=== PATIENT | female | born 1995 | race Caucasian/White ===

== ENCOUNTER → 2021-12-14 11:47 | Outpatient (CLI) | payer OTHER, SELFPAY ==
[2021-12-15 13:12] LABS: Strep Grp B PCR NEG for Grp B Strep
[2022-01-07 14:00] VITALS: PULSE 126; RESP 48; TEMP 36.8
--- NOTE | 2022-01-07 15:53 | PC.NURSE ---
1400 patient admitted to Center,alert, mom gave 10cc of formula then babe placed under double backing. VSS
--- NOTE | 2022-01-07 15:58 | PC.NURSE ---
5170 explained to mother plan of care,feeding and supplementation,set up electric pump
== END ==
PROVIDERS: Visit Provider Obstetrics & Gynecology
DX: Z34.03 Encounter for supervision of normal first pregnancy, third trimester (principal); Z3A.36 36 weeks gestation of pregnancy
CPT/HCPCS: 87653

== ENCOUNTER 2022-01-07 16:09 | Observation (INO) | payer OTHER, SELFPAY ==
--- NOTE | 2022-01-07 19:21 | P.TNLD_ITS ---
Visit Information Visit Information Date of evaluation: 01/07/22 Primary OB Provider: Manuelito Rajan On-call OB Provider: Manuelito Rajan Reason for Evaluation: Yes rule out labor Comments/Additional reasons for admission: Contractions all day log, slowly intensifying FOR[facility]LY [facility], [facility] Medical History Asperger syndrome Vasovagal episode Surgical History No history of previous surgery Family History Father Hypertension Diabetes mellitus Asthma Brother Asthma Club foot Grandmother Uterine cancer Mother Depression Bipolar 1 disorder Grandfather Prostate cancer Family/Other Spinal cord cancer Social History marital status: household members: spouse lives independently: Yes housing: house ([employer] until base housing becomes available) pets and animals: Yes (Parakeet and dog) education level: college (Associate's degree) occupational status: previously employed current occupational exposures/hazards: No special [place] needs: No seatbelt use: always water heater temp set < 120 deg: No (Not able to change in hotel, but will check once in housing.) working smoke detector in home: Yes fire extinguisher in home: Yes carbon monox detector in home: Yes firearms in home: Yes firearms unloaded and locked: Yes do you feel safe at home: Yes Smoking Status: Never smoker second hand exposure: No alcohol intake: former substance use type: does not use during the past year weight has: remained stable well-balanced diet: daily or most days daily servings fruits/ve-4 caffeine: Yes Type(s) of exercise: regular exercise Review of Systems Review of Systems Narrative: Problem-specific ROS positives included in HPI Exam Const General: cooperative HENMT Head: normal to inspection, normocephalic and atraumatic Eyes General: appearance normal, both eyes and all related structures Resp Effort & Inspection: normal respiratory effort and able to speak in complete sentences GI Inspection: normal to inspection Palpation: soft and no hepatosplenomegaly Extrem Right lower extremity: normal to inspection Evaluation Evaluation Baseline heart rate: 140 Variability: Average (6-10) monitor accelerations: Present Monitor Decelerations: Absent Contraction Frequency (minutes): 3 Uterine Contraction Intensity: Mild Category of Tracing: Reactive Status: Category l Cervical dilation (cm): 2 Cervical effacement (%): 90 station: 0 Diagnosis, Plan/Disposition Final Diagnosis (1) : Status: Acute (2) Uterine contractions during : Status: Acute Plan/Disposition Plan: Extended observation; ambulate and recheck cervix for progress. Consider induction of spontaneous labor doesn't begin. OB Disposition: other (Observation)
== END 2022-01-07 22:23 | disposition home or self-care (01) ==
LOC: LABOR 16:11
PROVIDERS: Admitting Provider Obstetrics & Gynecology; Referring Provider Obstetrics & Gynecology; Visit Provider Obstetrics & Gynecology
DX: O47.1 False labor at or after 37 completed weeks of gestation (principal); O09.513 Supervision of elderly primigravida, third trimester; Z3A.40 40 weeks gestation of pregnancy
CPT/HCPCS: 59025; 59050; G0378; G0379

== ENCOUNTER 2022-01-08 16:16 | Inpatient (IN) | payer OTHER, SELFPAY ==
[2022-01-08 17:30] VITALS: BP 111/74
--- NOTE | 2022-01-08 18:04 | PM.OBHP.1 ---
OB HPI Date/Time Date of admission: 01/08/22 Date Patient Seen: 01/08/22 Time Patient Seen: 18:04 History of Present Condition Chief complaint: : 1 Para: 0 Estimated Date of Delivery: 01/05/22 Estimated Gestational Age (weeks): 40+3 w Narrative: Brittney Martinez is a 26 year old at 40+3 weeks EGA admitted with SROM occuring at 1550 this afternoon and contractions which have been steadily intensifying over the last 24-36 hours. Fluid is noted to be meconium stained. Her course has largely been uneventful w/ good dates, negative CfDMA (female), and negative second trimester AFP testing. Her anterior placenta has an accessory lobe in the fundal portion of the placenta. GBS is negative. History of Present care: good care Dating criteria: LMP confirmed by 1st trimester US Ultrasounds: normal 1st trimester US, normal mid trimester US and abnormal US findings (Accessory lobe of anterior placenta) Obstetrical complications: none Medical complications: none Preadmission Labs Blood type: A (+) positive -: Antibody screen: negative, GBS status: negative, HBsAG: negative, HIV: negative and RPR/VDLR: negative -: Chlamydia screen: not detected and Gonorrhea screen: not detected -: Rubella: immune and Varicella: immune HCT: 36.2 HCAB: negative PAP: Normal Cell-free DNA: Negative for trisomy; female 1 hr GTT: 135 Prior (ies) History: N/A Evaluation Evaluation Baseline heart rate: 145 Variability: Moderate (11-25) monitor accelerations: Present Monitor Decelerations: Absent Contraction Frequency (minutes): 4 Uterine Contraction Intensity: Moderate Category of Tracing: Reactive Status: Category l Dilation (cm): 3 Effacement (%): 90 Dilation: 3-4 cm Effacement: >/=80% station: -1 Position of cervix: anterior Consistency: soft John score: 11 Non-invasive Membranes Rupture Test: positive [facility] Medical History Asperger syndrome Vasovagal episode Surgical History No history of previous surgery Family History Father Hypertension Diabetes mellitus Asthma Brother Asthma Club foot Grandmother Uterine cancer Mother Depression Bipolar 1 disorder Grandfather Prostate cancer Family/Other Spinal cord cancer Social History marital status: household members: spouse lives independently: Yes housing: house ([place] until base housing becomes available) pets and animals: Yes (Parakeet and dog) education level: college (Associate's degree) occupational status: previously employed current occupational exposures/hazards: No special [place] needs: No seatbelt use: always water heater temp set < 120 deg: No (Not able to change in hotel, but will check once in housing.) working smoke detector in home: Yes fire extinguisher in home: Yes carbon monox detector in home: Yes firearms in home: Yes firearms unloaded and locked: Yes do you feel safe at home: Yes Smoking Status: Never smoker second hand exposure: No alcohol intake: former substance use type: does not use during the past year weight has: remained stable well-balanced diet: daily or most days daily servings fruits/ve-4 caffeine: Yes Type(s) of exercise: regular exercise Meds Home Medications and Allergies Home Medications Medication Instructions Recorded Confirmed Type prenat.vits,josh,oow-teib-tlyli 1 tab PO DAILY 10/20/21 01/08/22 History Allergies Allergy/AdvReac Type Severity Reaction Status Date / Time thymerisol AdvReac Severe Unconscious Uncoded 01/04/22 10:30 Review of Systems Review of Systems Narrative: Problem-specific ROS positives included in HPI OB Exam HENMT Head: normal to inspection, normocephalic and atraumatic Eyes General: appearance normal, both eyes and all related structures Resp Effort & Inspection: normal respiratory effort and able to speak in complete sentences Auscultation: clear to auscultation bilaterally Cardio Rate: regular rate Rhythm: regular rhythm Heart Sounds: S1 normal, S2 normal and no murmurs Extremities Lower extremity: Yes normal to inspection GI Inspection: normal to inspection Palpation: Yes soft and Yes no hepatosplenomegaly Uterus Location (Fundal Height): 36 Estimated Weight (lbs): 8 Amniotic Fluid: meconium (Moderate, non-particulate) Objective Labs Result Diagrams: 01/08/22 17:00 Assessment and Plan Assessment and Plan Assessment and Plan narrative: ASSESSMENT 1. IUP, 40+3 weeks EGA 2. SROM, meconium staining 3. Accessory lobe of placenta, anterior/fundal 4. GBS negative status PLAN 1. Admit for delivery 2. See orders
[2022-01-08 18:15] LABS: Add Manual Diff / Slide Review NO; Basophils Absolute Auto 0 /uL (0-100); Basophils Percent Auto 0.2 % (0-2); Eosinophils Absolute Auto 100 /uL (0-450); Eosinophils Percent Auto 0.5 % (2-4); Hematocrit 34.9 % (36-46); Hemoglobin 12.3 g/dL (12.0-16.0); Lymphocytes Absolute Auto 1600 /uL (1100-4500); Lymphocytes Percent Auto 13.7 % (25-40); Mean Corpuscular HGB Conc 35.1 % (30-36); Mean Corpuscular Hemoglobin 31.2 PG (26-34); Mean Corpuscular Volume 88.8 fL (80-100); Monocytes Absolute Auto 1200 /uL (0-900); Monocytes Percent Auto 10.3 % (3-14); Neutrophils Absolute Auto 8500 /uL (1500-7000); Neutrophils Percent Auto 75.3 % (50-75); Platelet Count 185 X10^3/uL (150-400); Red Blood Cell Count 3.93 X10^6/uL (4.0-5.2); Red Cell Distribution Width 14.3 % (11.6-14.8); White Blood Cell Count 11.3 X10^3/uL (4.5-11.0)
[2022-01-08 18:33] LABS: COVID19 -Nasal RAPID Negative (Negative)
[2022-01-08] MEDS: FENT 2MCG/ML BUPIV 0.125% EPI 200 MCG/100 ML PLAST..BAG 12 MCG EPIDURAL (19:31)
[2022-01-08] MEDS: LACTATED RINGERS 1,000 ML 100 ML IV (20:11)
[2022-01-08] MEDS: ePHEDrine 50 MG/ML VIAL 10 MG IV (22:26)
[2022-01-09] VITALS (10 sets, daily range): BP systolic 75–99; BP diastolic 48–62; PULSE 72–107; RESP 16–17; TEMP 36.8–37.4
[2022-01-09] MEDS: ONDANSETRON 4 MG/2 ML INJ 8 MG IV (00:49)
--- NOTE | 2022-01-09 01:48 | PM.OBPNLAB ---
Date/Time Date Patient Seen: 01/09/22 Time Patient Seen: 01:49 Pain Control Pain control: epidural Pelvic Exam Dilation (cm): 9 Effacement (%): 100 station: +1 Amniotic membrane status: Ruptured Contractions Contraction frequency (min): 3 Contraction duration (min): 1 Contraction pattern: Regular Contraction phase: Resting Contraction intensity: Moderate Status status: Category l Heart Rate Baseline: 150 Monitor Accelerations: Present Monitor Decelerations: Variable (Intermittent) Monitor Variability: Moderate Assessment and Plan Assessment: active labor Plan: continuous present management Comments: Anticipate second stage shortly and will initiate pushing.
--- NOTE | 2022-01-09 04:28 | PM.OBPNLAB ---
Date/Time Date Patient Seen: 01/09/22 Time Patient Seen: 04:28 Pain Control Pain control: epidural Pelvic Exam Dilation (cm): 10 Effacement (%): 100 station: +1 Amniotic membrane status: Ruptured Contractions Contractions on admission: irregular Monitor mode: External Contraction frequency (min): 3 Contraction pattern: Regular Contraction phase: Resting Contraction intensity: Moderate Status status: Category l Heart Rate Baseline: 125 Monitor Accelerations: Present Monitor Decelerations: Early Monitor Variability: Moderate Assessment and Plan Assessment: active labor Comments: Patient has now been pushing since 0310 with little progress beyond +1 station. Will empty bladder w/ straight cath and evaluate for possible vacuum assist to facilitate descent.
--- NOTE | 2022-01-09 05:30 | PM.OBPNLAB ---
Date/Time Date Patient Seen: 01/09/22 Time Patient Seen: 05:30 Pain Control Pain control: epidural Comments: Patient's back pain, despite TRISHA which has been replaced x 1, dosed continuously and bolused, is making it impossible for her to push effectively Pelvic Exam Dilation (cm): 10 Effacement (%): 100 station: +2 Amniotic membrane status: Ruptured Contractions Monitor mode: External Contraction frequency (min): 3 Contraction pattern: Regular Contraction phase: Resting Contraction intensity: Moderate Status status: Category l Heart Rate Baseline: 155 Monitor Accelerations: Present Monitor Decelerations: Early Monitor Variability: Moderate Assessment and Plan Assessment: active labor Plan: other Comments: determined to be direct OP by vag exam, confirmed with brief bedside US. Kiwi OmniCup vacuum applied (two pulls, <550 mmHg, no pop-offs) applied w/ minimal advancement of the vertex but the additional discomfort was poorly tolerated and therefore effective maternal pushing effort was minimal. Digital stretching of the levators during pushes brought the vertex down to +2 station but also very poorly tolerated. Anesthesia consulted and after discussion w/ patient and her will place a spinal block in order to provide adequate analgesia to tolerate pushing to facilitate vaginal delivery with or without vacuum assist. EFW 7.5 - 8#
[2022-01-09] MEDS: CEFAZOLIN 2 GM/20 ML SYRINGE IV (06:34)
--- NOTE | 2022-01-09 06:46 | PM.OBPRVD ---
Labor & Delivery Delivery date: 01/09/22 Intrapartal Events: Ineffective Pushing, Prolonged 2nd Stage > 2.5 hours, Bleeding and Abnormal Presentation (Persistent occiput posterior position) Cervical ripening method: none Induction method: none Delivery monitor: external FHT and external uterine Route of delivery: and vacuum extraction Indication for instrumentation: maternal exhaustion Episiotomy description: None L&D Laceration Description: Perineal - 3rd Degree and Vaginal - 2nd Degree Delivery repair: other (Patient transferred to OR for laceration closure and uterine exploration) Estimated blood loss (mL): 800 Anesthesia Type: Spinal and Epidural Complications: PPH, unable to fully assess/repair lacerations in Center Narrative: Following the placement of a spinal block, patient pushed more effectively but the vertex did not descend significantly. A vacuum extractor ([employer]) applied an the vertex was brought down to the perineum with 5 pulls (Max vacuum < 550 mmHg, no pop-offs) where the infant was allowed to deliver spontaneously over an intact perineum with delivery occurring ROP/ROT. No shoulder dystocia or body dystocia was encountered. The was vigorous at and skin to skin contact was initiated immediately following delivery. Delayed cord clamping was then performed as the infant remained vigorous. A cord blood sample was then obtained for routine studies. Attempts to deliver the placenta were delayed due to the presence of accessory placental lobe but with even gentle cord traction the cord avulsed at it's insertion which was eccentric and somewhat velamentous in appearance. The uterus was explored manually and the placenta removed in fragments but the uterus was empty at the completion of exploration. Examination of the perineum showed a third degree laceration with a left vaginal sidewall laceration noted to extend mcfp to the left lateral fornix. Adequate exposure for repair of the laceration was not possible due to the lack of adequate lighting or instrumentation and the decision was therefore made to transfer the patient to the [facility] for EUA, uterine exploration/curettage and repair of third degree perineal laceration and left vaginal sidewall laceration. Patient and her counselled re: alternatives, risks, benefits, and potential complications associated with EUA, uterine curettage, and repair of perineal/vaginal lacerations. With full understanding of the above, a written consent was executed, signed, and witnessed this date. Sponge, instrument, needle counts correct at the end of the delivery process. See separate procedure note for details of OR procedure. [place] Baby 1: Infant gender: Female Presentation: vertex Position: Left Occiput Posterior Placenta delivery description: Manual Removal, Uterine Exploration and Abnormal Configuration (Velamentous cord insertion with accessory lobe) Cord Vessel Description: 3 Vessels score (1 min): 9 score (5 min): 9 weight: 8 lb 6.57 oz Plan for aftercare: Other (To OR for EUA, curettage of the uterus, repair of OB lacerations)
[2022-01-09 07:51] LABS: Add Manual Diff / Slide Review NO; Basophils Absolute Auto 0 /uL (0-100); Basophils Percent Auto 0.1 % (0-2); Eosinophils Absolute Auto 0 /uL (0-450); Hematocrit 31.7 % (36-46); Hemoglobin 10.8 g/dL (12.0-16.0); Lymphocytes Absolute Auto 1300 /uL (1100-4500); Lymphocytes Percent Auto 4.6 % (25-40); Mean Corpuscular HGB Conc 34.1 % (30-36); Mean Corpuscular Hemoglobin 30.7 PG (26-34); Mean Corpuscular Volume 90.2 fL (80-100); Monocytes Absolute Auto 3100 /uL (0-900); Monocytes Percent Auto 10.6 % (3-14); Neutrophils Absolute Auto 24600 /uL (1500-7000); Neutrophils Percent Auto 84.7 % (50-75); Platelet Count 219 X10^3/uL (150-400); Red Blood Cell Count 3.51 X10^6/uL (4.0-5.2); Red Cell Distribution Width 14.6 % (11.6-14.8)
[2022-01-09] MEDS: TRANEXAMIC ACID 1,000 MG in SODIUM CHLORIDE 0.9% 100 ML 200 MG IV ×2 (08:18→10:58)
[2022-01-09] MEDS: LACTATED RINGERS 1,000 ML 100 ML IV ×3 (08:21→19:34)
--- NOTE | 2022-01-09 09:01 | P.OP_ITS ---
Operative Date/Time/Diagnoses Date of procedure: 01/09/22 Time of procedure: 07:45 Pre-op diagnosis: Possible retained placental fragments s/p vaginal OB delivery Left vaginal sidewall laceration s/p vaginal OB delivery Third degree perineal laceration s/p vaginal OB delivery Post-op diagnosis: same Procedure & Clinicians Procedure: Procedures Operation Date: 01/09/22 08:15 Actual Procedure Side Surgeon p KIRILL, Curettage of uterus, repair of vaginal sidewall laceration and third degree perineal laceration Manuelito Rajan MD Indications: Brittney is a 26-year-old status post vaginal on the morning of 01/09/2021 who sustained a significant left vaginal sidewall laceration in addition to a third-degree perineal laceration at the time of vacuum assisted vaginal delivery of an in the persistent occiput posterior position. In addition she had abnormal cord insertion and an accessory lobe of the placenta requiring manual removal of the placenta with possible remaining fragments of placenta within the uterine cavity. Without adequate lighting or exposure for proper repair of the vaginal sidewall laceration and gentle curettage of the uterine cavity on the center, the decision [facility] for UA, curettage of the uterus, and repair of left vaginal sidewall and perineal lacerations. Surgeon: Manuelito Rajan Anesthesia Type: Spinal and Sedation Operative Notes Findings: The uterine cavity was fully explored and found to be empty. Gentle sharp curettage of the endometrial cavity was performed with production of only some clots but no significant placental fragments were noted. The left vaginal sidewall laceration extended up the vaginal canal to within 4 cm of the left lateral fornix of the vagina. A third-degree (3b) perineal laceration in the midline is noted with greater than 50% of the external sphincter. involved. Closure Type: primary Specimen(s): none Estimated blood loss (mL): 250 Blood products transfused: none Procedure in detail: With the patient under satisfactory spinal anesthetic and sedation, she was prepped and draped in the modified dorsal lithotomy position for examination under anesthesia and vaginal repair. A pre-surgical safety time-out was then taken in accordance with [facility] protocols. A weighted speculum placed in the vagina and the anterior and posterior lip of the cervix was grasped forceps. Uterine cavity was gently explored digitally and felt to be empty. Gentle sharp curettage with a large curette was accomplished with production clotted material but no significant fragments of placental tissue w ere noted. Weighted speculum and sidewall retractors were placed in the vagina so as to be able to fully visualize the full length of the sidewall laceration. The sidewall laceration was then repaired beginning at the apex with 2-0 chromic in a running interlocking stitch and 2-0 interrupted for closure the space beneath the laceration. Upon complete closure of sidewall laceration, complete hemostasis was achieved and no underlying hematoma was noted. Attention was then turned to the third-degree repair. The sphincter was grasped on both sides with Lele Allis clamps and the capsule identified circumferentially. 0-Vicryl interrupted were then used to reapproximate the capsule and substance of the external sphincter ani. Once the sphincter have been completely repair repair of the mucosa was accomplished with 00 CCGS in layers. At the completion of the procedure, all mucosal edges were well reapproximated and there was no significant bleeding noted. Sponge and needle counts were correct at the completion of the case and the patient, having tolerated procedure well, was transferred back to [facility] for continued observation and recovery. Complications: none Post-operative Condition: stable Disposition: other ([facility]) Plan for aftercare: Stool softeners BID, mcmullen catheter due to swelling, routine post- care
[2022-01-09] MEDS: ACETAMINOPHEN 325 MG TABLET 650 MG PO ×2 (13:17→20:00)
[2022-01-09] MEDS: DERMOPLAST SPRAY 20% 60 ML 1 SPRAY TOP (13:17)
[2022-01-09] MEDS: IBUPROFEN 600 MG TABLET PO (15:51)
[2022-01-09 16:19] LABS: Add Manual Diff / Slide Review NO; Basophils Absolute Auto 0 /uL (0-100); Basophils Percent Auto 0.1 % (0-2); Eosinophils Absolute Auto 0 /uL (0-450); Eosinophils Percent Auto 0.1 % (2-4); Hematocrit 21.9 % (36-46); Hemoglobin 7.6 g/dL (12.0-16.0); Lymphocytes Absolute Auto 1400 /uL (1100-4500); Lymphocytes Percent Auto 7.5 % (25-40); Mean Corpuscular HGB Conc 34.7 % (30-36); Mean Corpuscular Volume 89.3 fL (80-100); Monocytes Absolute Auto 2300 /uL (0-900); Monocytes Percent Auto 12.1 % (3-14); Neutrophils Absolute Auto 15200 /uL (1500-7000); Neutrophils Percent Auto 80.2 % (50-75); Platelet Count 152 X10^3/uL (150-400); Red Blood Cell Count 2.45 X10^6/uL (4.0-5.2); Red Cell Distribution Width 14.5 % (11.6-14.8)
--- NOTE | 2022-01-09 18:46 | PM.OBPN.1 ---
Subjective - OB Subjective Patient comments: pain well controlled and tolerating diet [place] baby status: doing well [place] feeding status: exclusively breast feeding Narrative: Doing well but limited OOB. Cerna in place. Minimal bleeding PV. Pain well controlled. Date Patient Seen: 01/09/22 Time Patient Seen: 18:47 Exam Vital Signs (past 8 hours): - 01/09/22 13:17 01/09/22 15:51 Temperature 98.8 F 99.0 F Const General: cooperative, comfortable and other (Pale) Nutritional Appearance: thin Orientation: alert and oriented x3 HENMT Head: normal to inspection, atraumatic and abrasion Ears: hearing grossly normal bilaterally Face and sinus: face symmetric Eyes General: appearance normal, both eyes and all related structures Conjunctivae: conjunctivae normal Sclera: sclerae normal EOM: EOM intact bilaterally Neck Neck: normal visual inspection Resp Effort & Inspection: normal respiratory effort and able to speak in complete sentences Cardio Heart Sounds: no murmurs External Female Exam: other (Minimal lochia) Extrem General: no calf tenderness Psych Appearance: grossly normal Mental Status: mental status grossly normal Speech and Movement: speech and movement normal Mood: congruent mood Affect: normal affect Attitude: cooperative Thought Process: normal Thought Content: normal Judgment: judgment good Objective Labs Result Diagrams: 01/09/22 16:11 Labs: Laboratory Results - last 24 hr 01/08/22 01/09/22 01/09/22 17:00 07:34 16:11 WBC 29.0 H D 19.0 H RBC 3.51 L 2.45 L Hgb 10.8 L 7.6 L Hct 31.7 L 21.9 L MCV 90.2 89.3 MCH 30.7 31.0 MCHC 34.1 34.7 RDW 14.6 14.5 Plt Count 219 152 Neut % (Auto) 84.7 H 80.2 H Lymph % (Auto) 4.6 L 7.5 L [place] % (Auto) 10.6 12.1 Eos % (Auto) 0.0 L 0.1 L Baso % (Auto) 0.1 0.1 Neut # (Auto) 93880 H 03440 H Lymph # (Auto) 1300 1400 [place] # (Auto) 3100 H 2300 H Eos # (Auto) 0 0 Baso # (Auto) 0 0 Blood Type A Positive Antibody Screen Negative Crossmatch See Detail Assessment & Plan Assessment and Plan (1) Obstetric vaginal laceration, delivered, current hospitalization: Status: Acute (2) hemorrhage: Status: Acute (3) Anemia due to blood loss, acute: Status: Acute Plan day: 0 Comments: After discussion with patient and her , will transfuse 2U PRBC this evening and recheck H&H in the AM. Time Spent With Patient Time: Total time spent is greater than 50% in coordination of care (as documented) at patient's floor/unit and/or counseling patient: Time with patient: 15-24 minutes
[2022-01-09] MEDS: DOCUSATE 100 MG CAPSULE 200 MG PO (20:00)
[2022-01-10] MEDS: LACTATED RINGERS 1,000 ML 100 ML IV ×2 (01:52→06:30)
[2022-01-10 06:10] LABS: Hematocrit 26.2 % (36-46); Hemoglobin 9.1 g/dL (12.0-16.0)
[2022-01-10] MEDS: ACETAMINOPHEN 325 MG TABLET 650 MG PO ×2 (07:57→15:30)
[2022-01-10] MEDS: DOCUSATE 100 MG CAPSULE 200 MG PO (07:57)
[2022-01-10] MEDS: IBUPROFEN 600 MG TABLET PO ×2 (07:58→15:29)
--- NOTE | 2022-01-10 09:48 | PM.OBPN.1 ---
Subjective - OB Subjective Patient comments: no complaints and pain well controlled baby status: doing well feeding status: exclusively breast feeding Date Patient Seen: 01/10/22 Time Patient Seen: 09:48 Objective Labs Result Diagrams: 01/10/22 06:04 Labs: Laboratory Results - last 24 hr 01/08/22 01/09/22 01/10/22 17:00 16:11 06:04 WBC 19.0 H RBC 2.45 L Hgb 7.6 L 9.1 L Hct 21.9 L 26.2 L MCV 89.3 MCH 31.0 MCHC 34.7 RDW 14.5 Plt Count 152 Neut % (Auto) 80.2 H Lymph % (Auto) 7.5 L [place] % (Auto) 12.1 Eos % (Auto) 0.1 L Baso % (Auto) 0.1 Neut # (Auto) 73771 H Lymph # (Auto) 1400 [place] # (Auto) 2300 H Eos # (Auto) 0 Baso # (Auto) 0 Blood Type A Positive Antibody Screen Negative Crossmatch See Detail Assessment & Plan Assessment and Plan (1) Obstetric vaginal laceration, delivered, current hospitalization: Status: Acute (2) hemorrhage: Status: Acute (3) Anemia due to blood loss, acute: Status: Acute Time Spent With Patient Time: Total time spent is greater than 50% in coordination of care (as documented) at patient's floor/unit and/or counseling patient:
[2022-01-10] MEDS: IRON SUCROSE 200 MG in SODIUM CHLORIDE 0.9% 100 ML 220 MG IV (10:44)
--- NOTE | 2022-01-10 14:12 | P.DS_ITS ---
Discharge Providers Provider Date of admission: 01/08/22 16:16 Discharge Date: 01/10/22 Consults: 01/10/22 08:54 Consult to Medication Tech Routine Comment: Discharge provider: Manuelito Rajan MD Summary Hospital Course Date Patient Seen: 01/10/22 Time Patient Seen: 14:14 Diagnoses: Intrauterine gestation, calix, 40+3 weeks EGA, delivered Third degree perineal laceration, repaired Left vaginal sidewall laceration, repaired Post- hemorrhage Anemia due to acute blood loss Accessory lobe of the placenta Hospital Course: Brittney Martinez is a 26 year old at 40+3 weeks EGA admitted with on the evening of 01/08/2022 w/ SROM occuring at 1550 that afternoon and contractions which have been steadily intensifying over the last 24-36 hours.? Fluid is noted to be meconium stained.? Her course has largely been uneventful w/ good dates, negative CfDMA (female), and negative second trimester AFP testing.? Her anterior placenta has an accessory lobe in the fundal portion of the placenta.? GBS is negative. She progressed spontaneously in labor and enter the 2nd stage early on the morning of 01/09/2022. After approximately 70 minutes of ineffectual pushing, vacuum extraction was attempted x2 pulls with no progress of the vertex. The was determined to be in occiput posterior position and the patient's back pain was probed of 2 effective pushing. As result, the epidural catheter which had been replaced previously was removed and a spinal placed by anesthesia. Once the patient was sufficiently numb, attempts at pushing were made but due to her poor motor control, vacuum extraction was necessitated and the infant delivered in persistent left occiput posterior position which resulted in an extensive left vaginal sidewall laceration and third-degree perineal laceration. Blood loss was estimated to be about 800 cc and the patient began demonstrating signs/symptoms of hypovolemia requiring fluid bolus and IV ephedrine to stabilize her blood pressure while preparations were made to proceed to the operating room for closure of the left sidewall laceration and perineal tear. Details of the delivery are well summarized in my dictated delivery note of that date and details of the procedure following to close the left vaginal sidewall laceration and the third-degree perineal laceration are well detailed in my operative note of 01/09/2022. Following delivery the patient remained hemodynamically stable but her hemoglobin and hematocrit showed a marked drop with the hematocrit dropping from 31% to 21% necessitating transfusion 2 units of packed red blood cells. Following transfusion the hematocrit increased to 26 the patient received 200 mg iron sucrose intravenously. She is hemodynamically stable, independently ambulating, tolerating regular diet, and her pain is well-controlled pain medications. She will be discharged this time home with medications to include oxycodone 5 mg q.4-6 hours as needed pain dispense 12 no refills, ibuprofen 600 mg p.o. q.6 hours as needed pain dispensed 60 with 2 refills, Colace 200 mg p.o. b.i.d. times 30 days dispensed 60 with 2 refills, and MiraLax 1 cap p.o. daily with liquids. Patient will also use [id number] Tylenol pain relief. Prior to discharge the patient is counseled regarding precautionary symptoms, limitations activity medications, and plans for follow-up which will be in 2 weeks. Peripartum Data Delivery Method: Natural Vaginal (Vacuum assisted) Laceration Description: Perineal - 3rd Degree and Vaginal - 2nd Degree Episiotomy description: None Procedures: TRISHA placement in labor x2 Spinal anesthesia Vaginal Obstetrical delivery Examination were anesthesia, curettage of the uterus, repair of left vaginal sidewall laceration, repair of third-degree perineal laceration complications: perineal laceration and transfusion 1: Gender: Female Disposition of : home Discharge Diagnosis (1) Obstetric vaginal laceration, delivered, current hospitalization: Status: Acute (2) hemorrhage: Status: Acute (3) Anemia due to blood loss, acute: Status: Acute Time Spent with Patient Time attestation: Total time spent providing and/or coordinating discharge services: Objective Labs Result Diagrams: 01/10/22 06:04 Labs: Laboratory Results - last 24 hr 01/08/22 01/09/22 01/10/22 17:00 16:11 06:04 WBC 19.0 H RBC 2.45 L Hgb 7.6 L 9.1 L Hct 21.9 L 26.2 L MCV 89.3 MCH 31.0 MCHC 34.7 RDW 14.5 Plt Count 152 Neut % (Auto) 80.2 H Lymph % (Auto) 7.5 L [place] % (Auto) 12.1 Eos % (Auto) 0.1 L Baso % (Auto) 0.1 Neut # (Auto) 70073 H Lymph # (Auto) 1400 [place] # (Auto) 2300 H Eos # (Auto) 0 Baso # (Auto) 0 Blood Type A Positive Antibody Screen Negative Crossmatch See Detail Exam Const General: cooperative and comfortable Nutritional Appearance: average body habitus Orientation: alert and oriented x3 HENMT Head: normal to inspection, atraumatic and abrasion Ears: hearing grossly normal bilaterally Face and sinus: face symmetric Eyes General: appearance normal, both eyes and all related structures Conjunctivae: conjunctivae normal Sclera: sclerae normal EOM: EOM intact bilaterally Neck Neck: normal visual inspection Resp Effort & Inspection: normal respiratory effort and able to speak in complete sentences Auscultation: clear to auscultation bilaterally Cardio Rate: regular rate Rhythm: regular rhythm Heart Sounds: S1 normal, S2 normal and no murmurs GI Inspection: normal to inspection Palpation: soft, no hepatosplenomegaly and mass (Firm, minimally tender fundus, U-4) External Female Exam: other (Mild lochia, laceration repair intact w/ minimal bruising/edema) Extrem General: no calf tenderness Psych Appearance: grossly normal Mental Status: mental status grossly normal Speech and Movement: speech and movement normal Mood: congruent mood Affect: normal affect Attitude: cooperative Thought Process: normal Thought Content: normal Judgment: judgment good Discharge Plan Discharge Plan Patient Disposition: Home Provider Discharge Comment: Please review the written instructions you received when you were discharged from the hospital. Your follow-up appointment will be scheduled for 2 weeks from now and I look forward to seeing you then. If however you have any concerns, problems, or issues between now and then, please contact me either through the office phone at [phone] or via the patient portal. Discharge orders & Medications Prescriptions: New Dermoplast (with menthol) 20-0.5 % Aerosol 1 spray topical Q1HR PRN (Reason: perineal pain) Qty: 1 0RF docusate sodium 100 mg Capsule 200 mg PO BID Qty: 60 2RF ibuprofen 600 mg Tablet 600 mg PO Q6HR PRN (Reason: Pain, Mild (1-3)) Qty: 60 2RF oxycodone 5 mg Tablet 5 mg PO Q4HR PRN (Reason: Pain, Moderate (4-6)) Qty: 12 0RF Continued prenat.vits,josh,[id number] Tablet 1 tab PO DAILY Follow up/Referrals: Manuelito Rajan MD [Physician] - 01/25/22 1:45 pm (Please arrive 15 minutes early for check in!) Discharge Health Status Multidrug resistant organism: No MDRO Diet/Activity/Treatments Diet: Diet as Tolerated Activity: As tolerated Other treatments: Tylenol [id number] for additional pain relief. Use MiraLax daily and increase fluid to keep stools as soft as possible. One [id number] iron tablet twice daily with a vitamin-C tablet to improve absorption of the iron; take for 30 days to build up iron stores in your bone marrow. Skin/Wound/Dressing Care Report to your healthcare provider any signs of infection, such as:: chills, fever, increased pain, unusual drainage and unusual redness Dressing: N/A Visit Report/Discharge Packet Instructions: DI for Vulvo-vaginal Tears, DI for Labor and Delivery, Vaginal , DI for and Nipple Soreness, DI for Prescription Opioid Use Stand Alone Forms: Surgery Discharge
[2022-01-10 18:42] VITALS: BP 96/65; PULSE 92; RESP 16; TEMP 36.9
== END 2022-01-10 18:20 | disposition home or self-care (01) | DRG 768 ==
PROVIDERS: Admitting Provider Obstetrics & Gynecology; Referring Provider Obstetrics & Gynecology; Visit Provider Obstetrics & Gynecology
PROC: 10D07Z6 Extraction of Products of Conception, Vacuum, Via Natural or Artificial Opening (ICD-10-PCS; CPT 59300; principal; 2022-01-09 08:15)
DX: O42.02 Full-term premature rupture of membranes, onset of labor within 24 hours of rupture (principal); Z37.0 Single live birth; O70.20 Third degree perineal laceration during delivery, unspecified; D62 Acute posthemorrhagic anemia; O99.02 Anemia complicating childbirth; O63.1 Prolonged second stage (of labor); O77.0 Labor and delivery complicated by meconium in amniotic fluid; O70.1 Second degree perineal laceration during delivery; Z3A.40 40 weeks gestation of pregnancy; O43.193 Other malformation of placenta, third trimester; O32.8XX0 Maternal care for other malpresentation of fetus, not applicable or unspecified; Z20.822 Contact with and (suspected) exposure to COVID-19
CPT/HCPCS: 01967; 36415; 36430; 59050; 59160; 59410; 85014; 85018; 85025; 86850; 86900; 86901; 87635; C9803; P9016; G0379; J0690; J1756; J2250; J2405; J3010